=== PATIENT | female | born 1985 | race Caucasian/White ===

== ENCOUNTER 2019-01-05 15:08 | Emergency (ER) | payer OTHER ==
[~2019-01-05] VITALS: Ht 165.1 cm; Wt 77.1 kg
[~2019-01-05 15:08] MED LIST: ALEVE-D SINUS-1 EACH PO; MUCINEX TA600 MG/TA2 PO; ZPAK PO
[2019-01-05] MEDS ORDERED: KEFLEX500 M1 PO (15:53)
[2019-01-05] MEDS ORDERED: ERYTHROMYCIN E3.5 G3 OPHTHALMIC (15:53)
[2019-01-05 16:47] VITALS: BP 123/62
== END 2019-01-05 16:47 | disposition home or self-care (01) ==
LOC: ER 15:08
DX: H00.015 Hordeolum externum left lower eyelid (principal); H00.035 Abscess of left lower eyelid; F17.210 Nicotine dependence, cigarettes, uncomplicated; Z88.0 Allergy status to penicillin; Z88.2 Allergy status to sulfonamides